=== PATIENT | male | born 1945 | race African-American/Black ===

== ENCOUNTER 2018-06-06 19:09 | Emergency (ER) | payer OTHER ==
[~2018-06-06] VITALS: Ht 193 cm; Wt 121.8 kg
[2018-06-06 19:18] VITALS: Ht 193 cm; Wt 121.8 kg
[2018-06-06] MEDS ORDERED: GABAPENTIN100 MG (19:19)
[2018-06-06] MEDS ORDERED: HYDROCODON-ACE1 EAC7 (19:19)
[2018-06-06] MEDS ORDERED: OMEPRAZOLE40 MG PO (19:19)
[2018-06-06] MEDS ORDERED: LISINOPRIL10 MG PO (19:20)
[2018-06-06] MEDS ORDERED: B12 (19:20)
[2018-06-06] MEDS ORDERED: BAYER CHEWABLE81 MG PO (19:20)
[2018-06-06] MEDS ORDERED: ROBAXIN-750750 MG PO (20:31)
[2018-06-06 21:12] VITALS: BP 138/81
== END 2018-06-06 21:14 | disposition home or self-care (01) ==
LOC: D.ER 19:09
DX: M62.838 Other muscle spasm (principal); I10 Essential (primary) hypertension